=== PATIENT | male | born 1985 | race Caucasian/White ===

== ENCOUNTER → 2021-12-19 | Outpatient (CLI) | payer OTHER ==
[~2021-12-19] MED LIST: FLINTSTONES1 EAC1 PO; LISINOPRIL20 MG PO
[2021-12-19 09:05] LABS: HEMOGLOBIN 15.5 gm/dl (14.0-17.5); RED BLOOD COUNT 4.72 M/UL (4.20-5.50); WHITE BLOOD COUNT 7.7 K/UL (4.5-11.0)
[2021-12-19 09:21] LABS: BUN/CREATININE RATIO 12 (0-10)
== END ==
LOC: OPSV2 08:00 → EDSTATUS 08:00 → OPSV2 08:21
PROVIDERS: Orthopaedic Surgery
DX: Z01.818 Encounter for other preprocedural examination (principal)
CPT/HCPCS: 71046; 80048; 81001; 85027; 93005

== ENCOUNTER → 2021-12-31 | Outpatient (CLI) | payer OTHER ==
[~2021-12-31] MED LIST changes: +OXYCODONE HCL5 M1 PO
[2021-12-31 16:06] LABS: BUN/CREATININE RATIO 11 (0-10)
== END ==
LOC: LAB 14:09
PROVIDERS: Orthopaedic Surgery
DX: Z01.812 Encounter for preprocedural laboratory examination (principal); M51.27 Other intervertebral disc displacement, lumbosacral region
CPT/HCPCS: 36415; 80048; 85610; 85730; 86850; 86900; 86901

== ENCOUNTER → 2022-01-01 | Day surgery (SDC) | payer OTHER | END | disposition home or self-care (01) | LOC: OR 05:32 | DX: M51.16 Intervertebral disc disorders with radiculopathy, lumbar region (principal); I10 Essential (primary) hypertension; Z88.0 Allergy status to penicillin | CPT/HCPCS: 72100; 76000; J0690; J1040; J1170; J1885; J2001; J2250; J2405; J2550; J2704; J3010; J3370; J7040; J7120 ==